=== PATIENT | female | born 1990 | race Caucasian/White ===

== ENCOUNTER 2025-03-17 07:45 | Emergency (ER) | payer OTHER, SELFPAY ==
[2025-03-17 07:48] VITALS: BP 109/61
--- NOTE | 2025-03-17 08:25 | ED.GENMED ---
History of Present Illness
General
Chief Complaint: Abdominal Symptoms
Source: patient
Exam Limitations: none
Time Seen by Provider: 03/17/25 08:04
Nursing documentation reviewed up to this point in time: agreed with
History of Present Illness
History of Present Illness:
The patient is a 35-year-old female who presents emergency department with right flank pain. She states symptoms started suddenly this morning on her drive to work and describes a sharp pain in her right lower back with some radiation around to her
right lower abdomen. She did have a brief period of nausea however has not vomited. By my assessment, she states her pain is not quite as severe as it was prior to arrival.
She states that she had a similar episode pain during the day yesterday however it was very brief. On Friday, she was experiencing urinary pressure and was seen in an urgent care who diagnosed her with a UTI and started her on Macrobid.
Patient denies any fever, chills, dysuria, or hematuria. No chest pain or shortness of breath. No anorexia.
Patient has no past history of kidney stones.
Review of Systems
Review of Systems
Allergies reviewed?: Yes
All Other Systems: ROS reviewed and negative except as documented in HPI and ROS
Phy Exam
Physical Exam
Physical Exam:
Vitals: Patient's vital signs are stable. Afebrile
General: Patient is uncomfortable appearing due to pain.
Skin: Warm and dry, no rashes or lesions
Head: Normocephalic, atraumatic
Eyes: Sclera nonicteric.
Throat: Protecting airway
Neck: Normal ROM
Cardiac: Regular rate and rhythm, no murmurs.
Pulm: Normal respiratory effort. Lungs clear bilaterally
Abdomen: Abdomen soft and nontender. No reproducible tenderness at McBurney's point. No CVA tenderness bilaterally
Extremities: No evidence of cyanosis or edema
Neuro: AAOx3. Grossly intact.
Psychiatric: Normal affect.
Course
Orders/Labs/Results
Orders:
Orders
03/17/25 08:18
Abdomen/Pelvis wo Contrast CT [CT Abd/pelvis Wo Iv Cont] Urgent
Comment:
Reason For Exam: Right flank pain
0.9% Sodium Chloride 1000 ml [Nss] 1,000 ml IV BOLUS
Ketorolac [Toradol] 15 mg IV NOW STA
Test Result ONCE
03/17/25 08:47
Complete Blood Count/With Diff Urgent
Comprehensive Metabolic Panel Urgent
HCG, Serum Qualitative Screen Urgent
Urinalysis Reflex To Culture Urgent
Date Specimen was Collected: 03/17/25
Time Specimen was Collected: 08:30
Urine Microscopic Reflex Cult Urgent
Urine Culture Urgent
RICH Source: U
Specimen Description:
Date Specimen was Collected: 03/17/25
Time Specimen was Collected: 08:30
03/17/25 10:29
Tamsulosin [Flomax] 0.4 mg PO NOW STA
03/17/25 10:43
Add On - Microbiology Urgent
Tests Added?: urine culture
Abnormal Lab Results
03/17/25
08:47
WBC 3.7 L 10^3/uL
(4.8-10.8)
MCHC 32.8 L g/dL
(33.0-37.0)
MPV 10.5 H fL
(7.4-10.4)
Chloride 109 H mmol/L
(98-107)
Carbon Dioxide 20 L mmol/L
(22-30)
Glucose 101 H mg/dl
(70-99)
Urine Ketones 3+ A
(Negative)
Ur Occult Blood Reflex 1+ A
(Negative)
Urine RBC 16-20 A /HPF
(0-2)
Urine Bacteria (Reflex) Moderate A
(Negative)
03/17/25 08:47
03/17/25 08:47
Vital Signs
Initial and Last Documented VS:
Initial Vital Signs
Pulse Resp BP Pulse Ox
76 16 109/61 96
03/17/25 07:48 03/17/25 07:48 03/17/25 07:48 03/17/25 07:48
Last Documented Vital Signs
Pulse Resp BP Pulse Ox
67 16 105/83 100
03/17/25 08:44 03/17/25 08:44 03/17/25 08:44 03/17/25 08:44
MDM/Problems Addressed
Differential Diagnosis Includes:
Not limited to: Renal colic, pyelonephritis, cystitis, ruptured ovarian cyst, ovarian torsion, appendicitis, etc.
MDM/Problems Addressed:
35-year-old female presents with acute onset right flank pain preceded by urinary urgency 2 days ago. No associated fever, vomiting, anorexia, hematuria, chest pain, shortness of breath. She was started on Macrobid for presumed UTI 2 days ago. On
exam, vitals are stable. Her abdomen is soft and nontender. No CVA tenderness. Differential diagnosis as above. Likely renal colic/ureterolithiasis given acute flank pain and prior urinary symptoms. Less likely appendicitis given benign abdomen
without other associated symptoms. Other considerations would be pyelonephritis, musculoskeletal pain, ovarian pathology. Will check basic labs, UA. Will obtain noncontrast CT scan abdomen/pelvis. Will treat with IV fluids, Toradol and reassess.
Update 10:25 AM: CT scan shows a 3 mm calculus at right UVJ with mild hydro. Urine does not appear infected however will send for culture. Patient's pain is well-controlled here after dose of Toradol. Given patient is afebrile without any
systemic or urinary evidence of infection with well-controlled pain, feel appropriate for trial of stone passage at home. Will provide prescription for Flomax, pain control, Zofran. Information given for urologist.
Strict return precautions discussed. Patient comfortable with plan, all questions answered.
Chronic conditions affecting care:
N/A
Acute Exacerbation and/or Progression of Chronic Illness:
N/A
*Radiology
Radiology exam reviewed: radiology read reviewed
*Pulse Oximetry
SaO2: 96
Oxygen Mode of Delivery: Room air
Patient hypoxic: no
*EKG
Interpreted by ED Provider?: NA
*[employer] Interpretation
Rate: [employer]- N/A
*Critical Care Note
Total Time (30-74mins, 75-104mins- exclusive of procedures): Not Applicable
ED Attending Note
-
Portions of this chart may have been created with voice recognition software.� Occasional wrong word or��sound alike� substitutions may have occurred due to the inherent limitations of voice recognition software.
Discharge Plan
Departure
Patient Disposition: Home (Routine Discharge)
Date of Disposition: 03/17/25
Time of Disposition: 10:29
Patient with high blood pressure during this ER visit?: No
Condition: Good
Discharge Problem:
Calculus of ureterovesical junction (UVJ)
Instructions: Kidney stones in adults - ED (DC)
Prescriptions:
New
tamsulosin [Flomax] 0.4 mg capsule
0.4 mg PO DAILY Qty: 14 0RF
ondansetron 4 mg tablet,disintegrating
4 mg PO Q8H PRN (Reason: nausea and vomiting) Qty: 7 0RF
oxycodone 5 mg tablet
5 mg PO Q6H PRN (Reason: Pain) Qty: 5 0RF
Referrals:
Jesica Sosa CRNP [Family Provider, Family Practice]
Chidi Connolly Jr., MD [Active, Urology] - Next open appointment
Activity Restrictions/Additional Instructions:
RETURN TO THE EMERGENCY DEPARTMENT ANY FEVER, INTRACTABLE PAIN, INTRACTABLE NAUSEA/VOMITING, INABILITY TO URINATE, WORSENING IN CURRENT SYMPTOMS, OR ANY OTHER CONCERNS
- As discussed, your CT scan revealed a 3 mm stone in your right ureterovesicular junction. You should take 600 mg of ibuprofen every 6-8 hours. You can take Tylenol, in addition if needed. For intractable pain, a prescription for oxycodone has
been sent to your pharmacy. This may cause drowsiness and you should not take prior to driving.
- Please stay well-hydrated. Take Flomax daily until you passed stone. Continue to strain your urine.
- Follow-up with urology for further evaluation/management and to ensure that your symptoms improve.
Monitor your symptoms closely and return to the emergency department with any acute worsening/new symptoms or any signs of infection
Interventions
Interventions:
*Risk Screen - Suicide Last Done: 03/17/25 07:48
*General Assessment Last Done: 03/17/25 08:39
*Neglect/Abuse Screening Last Done: 03/17/25 07:48
*ED- Fall Risk Assessment Last Done: 03/17/25 08:39
*ED COVID-19 Vaccine History Last Done: 03/17/25 08:39
*ED Influenza Vaccine History Last Done: 03/17/25 08:39
LK-Lpmllz-Gyfwxicews Assessment Last Done: 03/17/25 09:00
Discharge Date and Time
Print Language: SYRIAC
[2025-03-17 08:39] VITALS: BMI 21.7
[2025-03-17] MEDS: NSS 1000 IV (08:43)
[2025-03-17] MEDS: TORADOL 15 MG IV (08:43)
[2025-03-17 08:44] VITALS: BP 105/83
[2025-03-17 09:08] LABS: HCG, Serum Qualitative Screen Negative
[2025-03-17 09:09] LABS: Hematocrit 39.6 % (37.0-47.0); Hemoglobin 13.0 g/dL (12.0-16.0); Mean Corp Hgb Conc. 32.8 g/dL (33.0-37.0); Mean Corpuscular Volume 90.8 fL (81.0-99.0); Nucleated Red Blood Cells % 0 %; Platelet Count 219 10^3/uL (130-400); Red Cell Dist. Width 12.6 % (11.5-14.5)
[2025-03-17 09:12] LABS: ALT (SGPT) 13 U/L (0-35); AST (SGOT) 17 U/L (14-36); Albumin 4.1 g/dl (3.5-5.0); Alkaline Phosphatase 68 U/L (38-126); Blood Urea Nitrogen 14 mg/dl (7-17); Calcium 9.2 mg/dl (8.4-10.2); Carbon Dioxide 20 mmol/L (22-30); Chloride 109 mmol/L (98-107); Estimated Creatinine Clearance 84 ml/min; Glucose 101 mg/dl (70-99); Potassium 3.6 mmol/L (3.5-5.1); Sodium 135 mmol/L (135-145); Total Protein 7.0 g/dl (6.3-8.2); eGFR > 60.00
[2025-03-17 09:48] LABS: Urine Character Clear (Clear)
[2025-03-17 10:07] LABS: Urine Squamous Cell 26-30 /LPF (Few); Urine Urothelial Cell 0-2 /LPF (FEW)
[2025-03-17 10:08] LABS: Urine Red Blood Cell 16-20 /HPF (0-2)
[2025-03-17] MEDS: FLOMAX 0.4 MG PO (10:57)
[2025-03-17 11:10] VITALS: BP 105/66
== END 2025-03-17 11:11 | disposition home or self-care (01) ==
LOC: EMR 07:45
PROVIDERS: Physician Assistant; EMERGENCY PHYSICIAN Student in an Organized Health Care Education/Training Program; FAMILY PHYSICIAN Nurse Practitioner Family
DX: N13.2 Hydronephrosis with renal and ureteral calculous obstruction (principal)
CPT/HCPCS: 99284; 96374; 96361; 74176; 80053; 81003; 81015; 84703; 85025; 87086